=== PATIENT | male | born 1965 | race Caucasian/White ===

== ENCOUNTER 2024-10-18 09:07 | Emergency (ER) | payer BC, SELFPAY ==
[2024-10-18 09:09] VITALS: BP 115/81; PULSE 73; TEMP 36.7; O2SAT 100; BMI 25.1
--- NOTE | 2024-10-18 09:12 | CT_ITS ---
[address] [address] Patient Name: CROW ALCANTARA MRN: [id number] date: 1965 Sex: M Assigned Patient Location: ER Current Patient Location: [facility] Accession/Order Number: [id number] Exam Date: 10/18/2024 10:03 Report Date: 10/18/2024 10:10 At the request of: JORGE FRANK MD Procedure: CT cervical spine wo con CT head/brain wo con, CT cervical spine wo con 10/18/2024 9:47 AM SIGNS AND SYMPTOMS: ^headache and neck pain, left arm numbness TECHNIQUE:Multi-detector CT axial slices of the brain and cervical spine were obtained without IV contrast. Helical,sagittal, coronal, and 3-D reconstructions of the cervical spine were performed. CT was performed with one or more of the following dose reduction techniques: Automated exposure control, adjustment of the mA and/or kV according to patient size, or use of iterative reconstruction technique. COMPARISON: None. FINDINGS: Noncontrast head CT: There is no shift of the midline structures, acute intracranial bleeding, mass effects, or evidence of acute ischemia. There is age-related cortical atrophy. The ventricular system is normal in size. The brainstem and the cerebellum are unremarkable. The visualized intraorbital contents, the visualized paranasal sinuses, and the infratemporal soft tissues show no acute abnormality. The osseous structures in the skull base and the calvarium show no abnormality. Cervical spine: There is preservation of the vertebral body heights. There is severe disc height loss at C5-C6 with moderate disc height loss at C6-C7. There is uncovertebral joint spurring and facet hypertrophy contribute to neural foraminal stenosis which is greatest bilaterally at C5-C6 and C6-C7. Broad-based disc bulges and endplate osteophyte formation contributing to spinal canal stenosis greatest at C5-C6. No fractures or dislocations are seen. The alignment of the cervical spine is normal. The craniocervical junction and atlantoaxial joint are within normal limits. The prevertebral soft tissues are within normal limits. The paraspinous soft tissues are within normal limits. The lung apices are unremarkable. CT/CT cervical spine wo con IMPRESSION: No acute intracranial pathology. No acute cervical spine injury. Degenerative changes are noted throughout cervical spine greatest at C5-C6 and C6-C7 as above. Impression dictated by: Aamir Gastelum M.D. 10/18/2024 10:10 AM Dictation Location: [place] [address] Electronically authenticated by: [id number] Y Date: 10/18/2024 10:10
--- NOTE | 2024-10-18 09:12 | CT_ITS ---
[address] [address] Patient Name: CROW ALCANTARA MRN: [id number] date: 1965 Sex: M Assigned Patient Location: ER Current Patient Location: .[facility] Accession/Order Number: [id number] Exam Date: 10/18/2024 10:03 Report Date: 10/18/2024 10:10 At the request of: JORGE FRANK MD Procedure: CT cervical spine wo con CT head/brain wo con, CT cervical spine wo con 10/18/2024 9:47 AM SIGNS AND SYMPTOMS: ^headache and neck pain, left arm numbness TECHNIQUE:Multi-detector CT axial slices of the brain and cervical spine were obtained without IV contrast. Helical,sagittal, coronal, and 3-D reconstructions of the cervical spine were performed. CT was performed with one or more of the following dose reduction techniques: Automated exposure control, adjustment of the mA and/or kV according to patient size, or use of iterative reconstruction technique. COMPARISON: None. FINDINGS: Noncontrast head CT: There is no shift of the midline structures, acute intracranial bleeding, mass effects, or evidence of acute ischemia. There is age-related cortical atrophy. The ventricular system is normal in size. The brainstem and the cerebellum are unremarkable. The visualized intraorbital contents, the visualized paranasal sinuses, and the infratemporal soft tissues show no acute abnormality. The osseous structures in the skull base and the calvarium show no abnormality. Cervical spine: There is preservation of the vertebral body heights. There is severe disc height loss at C5-C6 with moderate disc height loss at C6-C7. There is uncovertebral joint spurring and facet hypertrophy contribute to neural foraminal stenosis which is greatest bilaterally at C5-C6 and C6-C7. Broad-based disc bulges and endplate osteophyte formation contributing to spinal canal stenosis greatest at C5-C6. No fractures or dislocations are seen. The alignment of the cervical spine is normal. The craniocervical junction and atlantoaxial joint are within normal limits. The prevertebral soft tissues are within normal limits. The paraspinous soft tissues are within normal limits. The lung apices are unremarkable. CT/CT head/brain wo con IMPRESSION: No acute intracranial pathology. No acute cervical spine injury. Degenerative changes are noted throughout cervical spine greatest at C5-C6 and C6-C7 as above. Impression dictated by: Aamir Gastelum M.D. 10/18/2024 10:10 AM Dictation Location: [place] [address] Electronically authenticated by: [id number] Y Date: 10/18/2024 10:10
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
[2024-10-18] MEDS: KETOROLAC TROMETHAMINE 30 MG/ML VIAL 15 MG IVP (09:22)
[2024-10-18 09:30] LABS: Hematocrit 42.2 % (42.0-54.0); Hemoglobin 15.1 g/dL (14.0-18.0); Immature Granulocytes Abs Auto 0.01 10^3/uL (0.00-0.03); Immature Granulocytes Pct Auto 0.2 % (0.0-0.5); Lymphocytes Absolute Auto 1.4 10^3/uL (1.2-3.8); Mean Corpuscular HGB Conc 35.8 g/dL (29.9-35.2); Mean Corpuscular Hemoglobin 35.2 pg (25.9-34.0); Mean Corpuscular Volume 98.4 fL (80.0-94.0); Platelet Count 194 10^3/uL (150-450); Red Blood Count 4.29 10^6/uL (4.70-6.10); White Blood Count 4.2 10^3/uL (4.0-11.0)
[2024-10-18 09:41] LABS: Alanine Aminotransferase 75 U/L (16-63); Albumin Globulin Ratio 0.9; Albumin Level 3.2 g/dL (3.4-5.0); Alkaline Phosphatase 91 U/L (46-116); Anion Gap 11.4; Aspartate Amino Transferase 61 U/L (15-37); Blood Urea Nitrogen 20.0 mg/dL (7.0-18.0); Calcium 8.9 mg/dL (8.5-10.1); Carbon Dioxide 28.5 mmol/L (21.0-32.0); Chloride 108 mmol/L (98-107); Estimated GFR (African America >60 (>=60 mL/min/1.73m^2); Estimated GFR (Non-African Ame >60 (>=60 mL/min/1.73m^2); Globulin 3.5 g/dL; Glucose 108 mg/dL (74-106); Potassium 3.9 mmol/L (3.5-5.1); Sodium 144 mmol/L (136-145); Total Protein 6.7 g/dL (6.4-8.2)
--- NOTE | 2024-10-18 11:30 | PC.NURSE ---
soft cervical collar applied for pt comfort, pt tolerated well
[2024-10-18 11:47] VITALS: BP 112/88; PULSE 74; O2SAT 98
== END 2024-10-18 11:47 | disposition home or self-care (01) ==
PROVIDERS: Emergency Provider Emergency Medicine; PCP Internal Medicine
DX: M50.90 Cervical disc disorder, unspecified, unspecified cervical region (principal)
CPT/HCPCS: 36415; 70450; 72125; 80053; 85025; 96374; 99285; J1885